=== PATIENT | male | born 2000 | race Caucasian/White ===

== ENCOUNTER 2021-03-18 13:28 | Emergency (ER) | payer SELFPAY ==
[~2021-03-18] VITALS: Ht 160 cm; Wt 51.7 kg
[2021-03-18 13:33] VITALS: BP 155/92
--- NOTE | 2021-03-18 13:38 | NUR ---
PT AMB TO BED 6.
--- NOTE | 2021-03-18 13:44 | NUR ---
SONNY CORTÉS AT PT BEDSIDE FOR FURTHER EVALUATION.
--- NOTE | 2021-03-18 13:44 | NUR ---
20 Y/O MALE C/O LEFT EYE PAIN 10/10 DESCRIBES BURNING WITH REDNESS NOTED IN BOTH EYES. PT STATES +SENSITIVITY TO LIGHT, +BLURRY VISION, DENIES TRAUMA/INJURY. DENIES DISCHARGE, DENIES FEVER/CHILLS. DNEIES N/V. DENIES PMH NKA
[2021-03-18] MEDS ORDERED: FLUORESCEIN OPTH STRIP 1 MG OP ONE (13:45)
[2021-03-18] MEDS ORDERED: TETRACAINE HCL/PF 0.5% OPTH 4 ML BTL OP ONE (13:45)
[2021-03-18] MEDS ORDERED: IBUP-1842 PO (14:04)
[2021-03-18] MEDS ORDERED: ERYT5OIN51 OP (14:04)
[2021-03-18 14:14] VITALS: BP 142/84
--- NOTE | 2021-03-18 14:16 | NUR ---
Patient discharged with v/s stable. Written and verbal after care instructions given CORNEAL ABRASION and explained. Patient alert, oriented and verbalized understanding of instructions. Ambulatory with steady gait. All questions addressed prior to discharge. ID band removed. Patient advised to follow up with PMD. Rx of ERYTHRPOMYCIN AND IBUPROFEN given. Patient educated on indication of medication including possible reaction and side effects. Opportunity to ask questions provided and answered.
== END 2021-03-18 14:15 | disposition home or self-care (01) ==
LOC: MED 13:28
DX: S05.02XA Injury of conjunctiva and corneal abrasion without foreign body, left eye, initial encounter (principal); Z79.899 Other long term (current) drug therapy; X58.XXXA Exposure to other specified factors, initial encounter; Y93.89 Activity, other specified; Y92.89 Other specified places as the place of occurrence of the external cause; Y99.8 Other external cause status
CPT/HCPCS: 99283